=== PATIENT | female | born 1950 | race Asian ===

== ENCOUNTER 2019-06-23 18:35 | Emergency (ER) | payer MEDICARE ==
[~2019-06-23] VITALS: Ht 147.3 cm; Wt 43.2 kg
[2019-06-23] MEDS ORDERED: FAMO20 PO (18:52)
[2019-06-23] MEDS ORDERED: TAMO10 PO (18:52)
[2019-06-23] MEDS ORDERED: LOSA25TA41 PO (18:52)
[2019-06-23] MEDS ORDERED: ASPI81 PO (18:52)
[2019-06-23] MEDS ORDERED: MONT10TA21 PO (18:52)
[2019-06-23 20:53] LABS: APPEARANCE,URINE CLOUDY (CLEAR); BILIRUBIN,URINE NEGATIVE (NEGATIVE); GLUCOSE, URINE (UA) NEGATIVE (NEGATIVE); KETONES,URINE TRACE mg/dL (NEGATIVE); LEUKOCYTE ESTERASE ,URINE LARGE (NEGATIVE); NITRATE,URINE NEGATIVE (NEGATIVE); OCCULT BLOOD,URINE LARGE (NEGATIVE); PROTEIN,URINE POS 1+ (NEGATIVE); UROBILINOGEN,URINE 0.2 mg/dL (<=1.0)
[2019-06-23 21:03] LABS: RBC,URINE 26-50 /HPF (0-2)
[2019-06-23 21:04] LABS: BACTERIA,URINE Few /HPF (None Seen); WBC,URINE >100 /HPF (0-5)
[2019-06-23 21:05] LABS: SQUAMOUS EPITHELIAL CELL,UR Few /LPF (None Seen)
[2019-06-23] MEDS ORDERED: CEPHALEXIN MONOHYDRATE 500 MG CAPSULE PO ONE (21:15)
[2019-06-23 21:25] VITALS: BP 111/70
== END 2019-06-23 21:51 | disposition home or self-care (01) ==
LOC: EMS 18:37
DX: N39.0 Urinary tract infection, site not specified (principal); I10 Essential (primary) hypertension; J45.909 Unspecified asthma, uncomplicated; Z79.82 Long term (current) use of aspirin; Z79.899 Other long term (current) drug therapy
CPT/HCPCS: 87086